=== PATIENT | female | born 2000 | race Caucasian/White ===

== ENCOUNTER 2022-12-23 12:44 | Emergency (ER) | payer MEDICAID ==
[~2022-12-23] VITALS: Ht 160 cm; Wt 67.6 kg
[2022-12-23 13:19] VITALS: BP 109/68
--- NOTE | 2022-12-23 13:29 | NUR ---
PT AMB TO BED 8
--- NOTE | 2022-12-23 13:35 | NUR ---
22YO FEMALE PT C/O VAGINAL BLEEDING AND INTERMITTENT LOWER ABD CRAMPING X2DAYS. PT RECOMMENDED BY OB TO COME TO ER AFTER TODAYS VISIT D/T NO HEART TONE FINDINGS. PT CURRENTLY 12WEEKS , A1. CRUZ 05/05/23 LMP 09/29/22. +NAUSEA. NOTES INTERMITTENT BLURRY VISION [id number]. DENIES V/D, FEVER,CHILLS OR TAKING MEDICATION. PT AAOX4, HOB POSITIONED PER COMFORT. PARTNER AT BEDSIDE HX: EPILEPSY ALLERGIES: ATROPINE,DIPHENOXYLATE
--- NOTE | 2022-12-23 13:50 | NUR ---
lab and us at bedside
[2022-12-23 14:03] LABS: BASOPHILS % (AUTO) 0.4 % (0.0-2.0); EOSINOPHILS # (AUTO) 0.4 K/uL (0-0.4); HEMATOCRIT 38.4 % (36-48); HEMOGLOBIN 13.3 g/dL (12.0-16.0); LYMPHOCYTES # (AUTO) 2.4 K/uL (2.5-16.5); LYMPHOCYTES % (AUTO) 26.4 % (20.5-51.1); MEAN CORPUSCULAR HEMOGLOBIN 30 pg (27-31); MEAN CORPUSCULAR HGB CONC 35 g/dL (33-37); MEAN CORPUSCULAR VOLUME 86.1 fL (80-94); MONOCYTES # (AUTO) 0.4 K/uL (0.8-1.0); MONOCYTES % (AUTO) 4.4 % (1.7-9.3); NEUTROPHILS # (AUTO) 5.9 K/uL (1.8-7.7); NEUTROPHILS % (AUTO) 64.8 % (42.2-75.2); PLATELET COUNT (AUTO) 217 K/uL (140-450); RED BLOOD CELL COUNT(AUTO) 4.46 MIL/uL (4.20-5.40); RED CELL DISTRIBUTION WIDTH 14.2 % (11.6-13.7)
[2022-12-23 14:05] LABS: APPEARANCE,URINE CLEAR (CLEAR); BILIRUBIN,URINE NEGATIVE (NEGATIVE); BLOOD, URINE 1+ (NEGATIVE); COLOR,URINE YELLOW (YELLOW); LEUKOCYTE ESTERASE ,URINE NEGATIVE (NEGATIVE); NITRITE, URINE NEGATIVE (NEGATIVE); PH,URINE 5.5 (5.0-9.0); UGLUCOSE NEGATIVE (NEGATIVE)
--- NOTE | 2022-12-23 14:15 | NUR ---
MD LINARES AT BEDSIDE FOR EVALUATION
[2022-12-23 15:58] VITALS: BP 110/68
--- NOTE | 2022-12-23 15:58 | NUR ---
The patient's care was reviewed and supervised by [facility], RN.
--- NOTE | 2022-12-23 15:58 | NUR ---
Patient discharged with v/s stable. Written and verbal after care instructions FOR THREATENED MISSCARRIAGE , SUBCHORIONIC HEMATOMA AND ACVTITY REDUCTION given and explained. Patient verbalized understanding. Ambulatory with steady gait. All questions addressed prior to discharge. Advised to follow up with PMD.
== END 2022-12-23 15:58 | disposition home or self-care (01) ==
LOC: MED 12:44
DX: O20.0 Threatened abortion (principal); Z3A.01 Less than 8 weeks gestation of pregnancy; Z88.8 Allergy status to other drugs, medicaments and biological substances; Z79.899 Other long term (current) drug therapy
CPT/HCPCS: 36415; 76817; 81003; 81025; 84702; 85025; 86900; 86901; 99284; Q0092

== ENCOUNTER 2023-01-02 13:29 | Emergency (ER) | payer MEDICAID ==
[~2023-01-02] VITALS: Ht 154.9 cm; Wt 61.2 kg
[2023-01-02 13:41] VITALS: BP 115/67
[2023-01-02] MEDS ORDERED: ACETAMINOPHEN EXTRA STRENGTH 500 MG TAB PO ONE (14:05)
[2023-01-02] MEDS ORDERED: BACITRACIN OINT 500 UNITS/GM PKT TP ONE (14:05)
--- NOTE | 2023-01-02 14:17 | NUR ---
22 years old female report 13 weeks c/o pain after falling on her stomach denies vaginal bleeding.
[2023-01-02 15:46] LABS: BASOPHILS # (AUTO) 0.1 K/uL (0.00-0.22); BASOPHILS % (AUTO) 0.6 % (0.0-2.0); EOSINOPHILS # (AUTO) 0.3 K/uL (0-0.4); EOSINOPHILS % (AUTO) 2.5 % (0.0-4.0); HEMATOCRIT 37.3 % (36-48); LYMPHOCYTES # (AUTO) 2.6 K/uL (2.5-16.5); LYMPHOCYTES % (AUTO) 25.8 % (20.5-51.1); MEAN CORPUSCULAR HEMOGLOBIN 30 pg (27-31); MEAN CORPUSCULAR HGB CONC 35 g/dL (33-37); MEAN CORPUSCULAR VOLUME 85.8 fL (80-94); MONOCYTES # (AUTO) 0.4 K/uL (0.8-1.0); MONOCYTES % (AUTO) 3.6 % (1.7-9.3); NEUTROPHILS # (AUTO) 6.9 K/uL (1.8-7.7); NEUTROPHILS % (AUTO) 67.5 % (42.2-75.2); PLATELET COUNT (AUTO) 193 K/uL (140-450); RED BLOOD CELL COUNT(AUTO) 4.35 MIL/uL (4.20-5.40); RED CELL DISTRIBUTION WIDTH 14.1 % (11.6-13.7); WHITE BLOOD COUNT (AUTO) 10.2 K/uL (4.8-10.8)
--- NOTE | 2023-01-02 16:29 | NUR ---
DAVI TAPE APPLIED TO R FOOT 1ST AND 2ND TOE. CRUTCHES GIVEN AND RETURNED SAFE DEMONSTRATION.
[2023-01-02 17:34] VITALS: BP 110/70
--- NOTE | 2023-01-02 17:37 | NUR ---
patient condition improved d/c home with instructions after care reviewed understood crutches given tolerated well.
== END 2023-01-02 17:34 | disposition home or self-care (01) ==
LOC: MED 13:29
DX: O9A.211 Injury, poisoning and certain other consequences of external causes complicating pregnancy, first trimester (principal); S90.111A Contusion of right great toe without damage to nail, initial encounter; O20.0 Threatened abortion; Z3A.13 13 weeks gestation of pregnancy; Z88.8 Allergy status to other drugs, medicaments and biological substances; Z79.899 Other long term (current) drug therapy; W18.30XA Fall on same level, unspecified, initial encounter; Y93.89 Activity, other specified; Y92.89 Other specified places as the place of occurrence of the external cause; Y99.8 Other external cause status
CPT/HCPCS: 36415; 73660; 76801; 84702; 85025; 99284; Q0092

== ENCOUNTER 2023-02-27 18:55 | Observation (INO) | payer MEDICAID ==
[2023-02-27 20:00] VITALS: BP 99/54; PULSE 72; RESP 18; TEMP 98.1
== END 2023-02-27 21:00 | disposition home or self-care (01) ==
LOC: MLD 18:55
PROVIDERS: ADMIT Obstetrics & Gynecology; ATTEND Obstetrics & Gynecology
DX: O99.712 Diseases of the skin and subcutaneous tissue complicating pregnancy, second trimester (principal); L51.1 Stevens-Johnson syndrome; O26.892 Other specified pregnancy related conditions, second trimester; R10.30 Lower abdominal pain, unspecified; Z3A.16 16 weeks gestation of pregnancy
CPT/HCPCS: G0378; G0379

== ENCOUNTER 2023-12-22 16:34 | Emergency (ER) | payer MEDICAID ==
[~2023-12-22] VITALS: Ht 160 cm; Wt 79.4 kg
[2023-12-22 16:43] VITALS: BP 99/53; PULSE 79; RESP 18; TEMP 97.6; O2SAT 98
[2023-12-22 17:28] LABS: ALBUMIN 3.6 g/dL (3.4-5.0); ANION GAP 10.1 (8-16); CREATININE 0.5 mg/dL (0.6-1.3); POTASSIUM 4.1 mmol/L (3.5-5.1); TOTAL BILIRUBIN 0.3 mg/dL (0.0-1.0); TOTAL PROTEIN, SERUM 7.3 g/dL (6.4-8.2)
[2023-12-22] MEDS: ACETAMINOPHEN EXTRA STRENGTH 500 MG TAB PO ONE (18:04)
[2023-12-22] MEDS: ASPIRIN 325 MG TAB PO ONE (18:08)
[2023-12-22 18:55] VITALS: BP 124/68; PULSE 97; RESP 13; TEMP 98.7; O2SAT 98
== END 2023-12-22 18:55 | disposition home or self-care (01) ==
LOC: MED 16:34
DX: R07.89 Other chest pain (principal); R42 Dizziness and giddiness; J45.909 Unspecified asthma, uncomplicated; Z88.8 Allergy status to other drugs, medicaments and biological substances; Z79.899 Other long term (current) drug therapy
CPT/HCPCS: 36415; 71045; 80053; 81025; 84484; 93005; 99285